=== PATIENT | male | born 1975 | race Caucasian/White ===

== ENCOUNTER 2021-01-05 17:49 | Observation (INO) | payer SELFPAY ==
[~2021-01-05] VITALS: Ht 175.3 cm; Wt 68.0 kg
--- NOTE | 2021-01-05 17:51 | NUR ---
PATIENT TO ROOM VIA WHEELCHAIR AND PHYSICIAN NOTIFIED OF PATIENT STATUS
[2021-01-05 18:21] LABS: HEMATOCRIT 49.2 % (39.0-50.0); HEMOGLOBIN 17.1 g/dl (14.0-18.0); IMMATURE GRANULOCYTES 0.4 % (0.0-5.0); MEAN CELL VOLUME 86.3 fL CALC (80.0-100.0); MEAN CORPUSCULAR HGB CONC 34.8 g/dL CAL (32.0-36.0); NEUT# 14.64 thou/uL (1.82-7.42); RED BLOOD COUNT 5.7 mill/uL (4.70-6.10); RED CELL DISTRI WIDTH 12.7 % (11.5-15.5)
[2021-01-05 18:34] LABS: ACT PARTIAL THROMBO TIME 26.3 SECONDS (20.0-32.5); INTERNATIONAL NORMALIZED RATIO 1.1 RATIO (0.7-1.3); PROTHROMBIN TIME 11.3 SECONDS (9.0-12.5)
[2021-01-05 18:37] LABS: ALBUMIN 5.1 g/dL (3.2-5.0); ALKALINE PHOSPHATASE 61 u/l (38-126); AMYLASE 66 u/l (30-110); ANION GAP 15 (6-22 (CALC)); BILIRUBIN, TOTAL 1.1 mg/dL (0.0-1.4); BUN 19 mg/dL (9-20); BUN/CREATININE RATIO 24 (12-20 (CALC)); CARBON DIOXIDE 28 mmol/l (22-30); CHLORIDE 96 mmol/l (95-108); CREATININE 0.8 mg/dL (0.7-1.3); ETHYL ALCOHOL 0 mg/dl (0-30); GFR > 60 ML/MIN (>=60 (CALC)); GFR FOR AFR.AMER. > 60 ML/MIN (>=60 (CALC)); LIPASE 39 u/l (23-300); MAGNESIUM 1.8 mg/dL (1.6-2.3); POTASSIUM 3.4 mmol/l (3.5-5.1); SGOT/AST 40 u/l (17-59); SODIUM 135 mmol/l (137-146); TOTAL PROTEIN 8.7 g/dL (6.3-8.2)
--- NOTE | 2021-01-05 19:00 | NUR ---
ASSUMED CARE OF PT
--- NOTE | 2021-01-05 20:00 | NUR ---
Reassessment of patient completed. No distress noted.
--- NOTE | 2021-01-05 21:08 | NUR ---
PT ENCOURAGED TO PROVIDA A URINE SAMPLE
[2021-01-05 21:18] LABS: URINE BILIRUBIN - DIPSTICK NEGATIVE (NEGATIVE); URINE BLOOD DIPSTICK NEGATIVE (NEGATIVE); URINE COLOR YELLOW; URINE GLUCOSE - DIPSTICK NEGATIVE (NEGATIVE); URINE KETONE TRACE mg/dL (NEGATIVE); URINE LEUK ESTERASE NEGATIVE (NEGATIVE); URINE PROTEIN - DIPSTICK 30 mg/dL (NEG-TRACE)
[2021-01-05 21:19] LABS: URINE NITRITE - DIPSTICK NEGATIVE (Negative)
--- NOTE | 2021-01-05 22:01 | NUR ---
Reassessment of patient completed. No distress noted.
--- NOTE | 2021-01-05 23:36 | NUR ---
REPORT GIVEN TO AllocadiaLORNA BLANKENSHIP
--- NOTE | 2021-01-06 00:02 | NUR ---
PT TRANSPORTED VIA WHEELCHAIR
--- NOTE | 2021-01-06 00:16 | NUR ---
PT ALERT AND ORIENTED. PT HAS BEEN THROWING UP LAST THREE DAYS FROM MILK. ABD TENDER TO TOUCH. LUNGS SOUNDS CLEAR. HEART HATE NORMAL. NO EDMEA. PT NPO. HE HAS ICE CHIPS ON BED SIDE TABLE. TOLERATING IT OKAY. PT SAYS PAIN IS AT 6 AT THIS MOMENT. WILL CALL OXYGEN EQUIPMENT TECHNICIAN CALL LIGHT AND TABLE WITHIN RANGE.
[2021-01-06 00:20] VITALS: BP 135/87
[2021-01-06 04:00] VITALS: BP 112/64
--- NOTE | 2021-01-06 04:00 | NUR ---
PT IN BED RESTING. ASKED FOR ICE CHIPS AND ABLE TO TOLERATE. PAIN IS NOT SEVERE BEFORE. CALL LIGHT AND TABLE WITHIN REACH
[2021-01-06 05:39] LABS: ANION GAP 10 (6-22 (CALC)); BUN 15 mg/dL (9-20); BUN/CREATININE RATIO 20 (12-20 (CALC)); CARBON DIOXIDE 30 mmol/l (22-30); CHLORIDE 100 mmol/l (95-108); CREATININE 0.7 mg/dL (0.7-1.3); GFR > 60 ML/MIN (>=60 (CALC)); GFR FOR AFR.AMER. > 60 ML/MIN (>=60 (CALC)); POTASSIUM 3.8 mmol/l (3.5-5.1); SODIUM 136 mmol/l (137-146)
[2021-01-06 05:43] LABS: IMMATURE GRANULOCYTES 0.4 % (0.0-5.0); MEAN CELL VOLUME 89.7 fL CALC (80.0-100.0); MEAN CORPUSCULAR HGB 29.9 pG CALC (26.0-32.0); MEAN CORPUSCULAR HGB CONC 33.3 g/dL CAL (32.0-36.0); NEUT# 9.48 thou/uL (1.82-7.42); RED BLOOD COUNT 4.68 mill/uL (4.70-6.10)
[2021-01-06 08:00] VITALS: BP 114/63
--- NOTE | 2021-01-06 09:00 | NUR ---
PT ATTEMPTED TO EAT FULL LIQUID BREAKFAST, FOUND THAT HE WAS STILL GETTING NAUSEATED. NO ACTIVE VOMITING NOTED, SLIGHT EPIGASTRIC DISCOMFORT.
[2021-01-06 11:19] VITALS: BP 111/69
[2021-01-06] MEDS ORDERED: ZOFRAN4 MG/TAB PO (11:21)
[2021-01-06] MEDS ORDERED: PRILOSEC20 MG/CAP PO (11:22)
--- NOTE | 2021-01-06 12:56 | NUR ---
PT STATES THAT HE WAS ABLE TO EAT SOME OF HIS LUNCH PRIOR TO GETTING NAUSEATED. PT STATES THAT HE FEELS WELL ENOUGH TO GO HOME. PT VERBALIZES UNDERSTANDING OF DC INSTRUCTIONS, TAKEN BY WHEELCHAIR TO LOBBY WHERE HE IS EXPECTING GIRLFRIEND TO PICK HIM UP. PT LEAVES IN STABLE CONDITION.
== END 2021-01-06 13:00 | disposition home or self-care (01) | DRG 392 ==
LOC: ED 17:49 → ED-I 21:50 → ED 22:02 → MS2 22:03
PROVIDERS: ADMIT Internal Medicine; ATTEND Internal Medicine
DX: K52.9 Noninfective gastroenteritis and colitis, unspecified (principal); Z87.11 Personal history of peptic ulcer disease
CPT/HCPCS: G0378; Q9967; S0164

== ENCOUNTER 2021-02-18 23:51 | Emergency (ER) | payer SELFPAY ==
[~2021-02-18] VITALS: Ht 175.3 cm; Wt 70.0 kg
[~2021-02-18 23:51] MED LIST: PRILOSEC20 MG/CAP PO; ZOFRAN4 MG/TAB PO
[2021-02-19 00:34] LABS: HEMATOCRIT 47.4 % (39.0-50.0); IMMATURE GRANULOCYTES 0.3 % (0.0-5.0); MEAN CORPUSCULAR HGB 30.1 pG CALC (26.0-32.0); MEAN CORPUSCULAR HGB CONC 34.6 g/dL CAL (32.0-36.0); NEUT# 14.78 thou/uL (1.82-7.42); RED BLOOD COUNT 5.45 mill/uL (4.70-6.10); RED CELL DISTRI WIDTH 12.7 % (11.5-15.5)
[2021-02-19 00:38] LABS: HEMOGLOBIN 16.4 g/dl (14.0-18.0)
[2021-02-19 01:06] LABS: ALBUMIN 4.7 g/dL (3.2-5.0); ALKALINE PHOSPHATASE 61 u/l (38-126); AMYLASE 53 u/l (30-110); ANION GAP 15 (6-22 (CALC)); BILIRUBIN, TOTAL 0.8 mg/dL (0.0-1.4); BUN 10 mg/dL (9-20); BUN/CREATININE RATIO 16 (12-20 (CALC)); CARBON DIOXIDE 25 mmol/l (22-30); CHLORIDE 103 mmol/l (95-108); CREATININE 0.7 mg/dL (0.7-1.3); GFR > 60 ML/MIN (>=60 (CALC)); GFR FOR AFR.AMER. > 60 ML/MIN (>=60 (CALC)); LIPASE 29 u/l (23-300); POTASSIUM 3.5 mmol/l (3.5-5.1); SGOT/AST 24 u/l (17-59); SODIUM 140 mmol/l (137-146); TOTAL PROTEIN 8.1 g/dL (6.3-8.2)
[2021-02-19 07:59] LABS: URINE BILIRUBIN - DIPSTICK NEGATIVE (NEGATIVE); URINE BLOOD DIPSTICK NEGATIVE (NEGATIVE); URINE COLOR YELLOW; URINE GLUCOSE - DIPSTICK NEGATIVE (NEGATIVE); URINE KETONE 15 mg/dL (NEGATIVE); URINE LEUK ESTERASE NEGATIVE (NEGATIVE); URINE PROTEIN - DIPSTICK TRACE mg/dL (NEG-TRACE); URINE SPECIFIC GRAVITY 1.025; URINE UROBILINOGEN - DIPSTICK 0.2 E.U./dL (0.2)
[2021-02-19 08:05] LABS: URINE NITRITE - DIPSTICK NEGATIVE (Negative)
[2021-02-19] MEDS ORDERED: LOMOTIL2.5 MG PO (10:37)
[2021-02-19] MEDS ORDERED: EQ OMEPRAZOLE20 MG PO (10:37)
[2021-02-19] MEDS ORDERED: ONDANSETRON4 MG PO (10:37)
[2021-02-19] MEDS ORDERED: ULTRAM50 M1 PO (10:37)
[2021-02-19 10:53] VITALS: BP 136/82
[2021-02-20] MEDS ORDERED: PHENERGAN25 MG/TAB PO (22:39)
== END 2021-02-19 11:08 | disposition home or self-care (01) | DRG 392 ==
LOC: ED 23:51
PROVIDERS: Emergency Medicine
DX: K52.9 Noninfective gastroenteritis and colitis, unspecified (principal); D72.829 Elevated white blood cell count, unspecified; Z87.11 Personal history of peptic ulcer disease; Z20.822 Contact with and (suspected) exposure to COVID-19
CPT/HCPCS: Q9967; S0164

== ENCOUNTER 2021-02-20 18:46 | Emergency (ER) | payer SELFPAY ==
[~2021-02-20] VITALS: Ht 175.3 cm; Wt 72.7 kg
[~2021-02-20 18:46] MED LIST changes: +EQ OMEPRAZOLE20 MG PO; +LOMOTIL2.5 MG PO; +ONDANSETRON4 MG PO; +ULTRAM50 M1 PO
[2021-02-20 19:47] LABS: HEMATOCRIT 43.3 % (39.0-50.0); HEMOGLOBIN 14.9 g/dl (14.0-18.0); IMMATURE GRANULOCYTES 0.4 % (0.0-5.0); MEAN CELL VOLUME 87.1 fL CALC (80.0-100.0); MEAN CORPUSCULAR HGB CONC 34.4 g/dL CAL (32.0-36.0); NEUT# 12.92 thou/uL (1.82-7.42); RED BLOOD COUNT 4.97 mill/uL (4.70-6.10); RED CELL DISTRI WIDTH 12.8 % (11.5-15.5)
[2021-02-20 20:05] LABS: ALBUMIN 4.7 g/dL (3.2-5.0); ALKALINE PHOSPHATASE 52 u/l (38-126); AMYLASE 62 u/l (30-110); ANION GAP 14 (6-22 (CALC)); BILIRUBIN, TOTAL 0.9 mg/dL (0.0-1.4); BUN 10 mg/dL (9-20); BUN/CREATININE RATIO 13 (12-20 (CALC)); CARBON DIOXIDE 28 mmol/l (22-30); CHLORIDE 101 mmol/l (95-108); CREATININE 0.7 mg/dL (0.7-1.3); ETHYL ALCOHOL 0 mg/dl (0-30); GFR > 60 ML/MIN (>=60 (CALC)); GFR FOR AFR.AMER. > 60 ML/MIN (>=60 (CALC)); LIPASE 41 u/l (23-300); SGOT/AST 38 u/l (17-59); SODIUM 140 mmol/l (137-146)
[2021-02-20 22:05] LABS: URINE BILIRUBIN - DIPSTICK NEGATIVE (NEGATIVE); URINE BLOOD DIPSTICK NEGATIVE (NEGATIVE); URINE COLOR YELLOW; URINE GLUCOSE - DIPSTICK NEGATIVE (NEGATIVE); URINE KETONE 40 mg/dL (NEGATIVE); URINE LEUK ESTERASE NEGATIVE (NEGATIVE); URINE PROTEIN - DIPSTICK 30 mg/dL (NEG-TRACE); URINE SPECIFIC GRAVITY >=1.030; URINE UROBILINOGEN - DIPSTICK 0.2 E.U./dL (0.2)
[2021-02-20 22:16] LABS: URINE NITRITE - DIPSTICK NEGATIVE (Negative)
[2021-02-20 22:17] LABS: URINE RBC 0-2 RBC/hpf (0-5); URINE WBC 0-2 WBC/hpf (0-5)
[2021-02-20] MEDS ORDERED: PHENERGAN25 MG/TAB PO (22:39)
[2021-02-20 23:11] VITALS: BP 126/82
== END 2021-02-20 23:11 | disposition home or self-care (01) | DRG 392 ==
LOC: ED 18:46
DX: R11.2 Nausea with vomiting, unspecified (principal); R10.84 Generalized abdominal pain; Z87.11 Personal history of peptic ulcer disease
CPT/HCPCS: S0164

== ENCOUNTER 2024-04-01 19:25 | Emergency (ER) | payer SELFPAY ==
[2024-04-01] VITALS (8 sets, daily range): BP systolic 149–181; BP diastolic 83–119
[~2024-04-01] VITALS: Ht 175.3 cm; Wt 77.0 kg
[~2024-04-01 19:25] MED LIST changes: +PHENERGAN25 MG/TAB PO
[2024-04-01] MEDS ORDERED: SODIUM CHLORIDE 0.9% 1,000 ML IV STA (20:02)
[2024-04-01] MEDS ORDERED: KETOROLAC TROMETHAMINE 30 MG/ML SDV IV ONE ×2 (20:05→23:50)
[2024-04-01] MEDS ORDERED: LOPERAMIDE HCL 2 MG CAP PO ONE (20:05)
[2024-04-01] MEDS ORDERED: PROMETHAZINE HCL 25 MG/ML AMP IV ONE (20:05)
[2024-04-01 20:39] LABS: BASO% 0.2 % (0-3); IMMATURE GRANULOCYTES 0.2 % (0.0-5.0); LYMPH% 8.4 % (15-41); MEAN CELL VOLUME 88.9 fL CALC (80.0-100.0); MEAN CORPUSCULAR HGB 30.2 pG CALC (26.0-32.0); MONO% 4.6 % (2-13); NEUT# 14.11 thou/uL (1.82-7.42); NEUT% 86.6 % (42-76); RED BLOOD COUNT 5.59 mill/uL (4.70-6.10); RED CELL DISTRI WIDTH 12.9 % (11.5-15.5)
[2024-04-01 20:40] LABS: HEMATOCRIT 49.7 % (39.0-50.0); HEMOGLOBIN 16.9 g/dl (14.0-18.0)
[2024-04-01 20:48] LABS: ALBUMIN 4.7 g/dL (3.2-5.0); BILIRUBIN, TOTAL 1.1 mg/dL (0.2-1.3); CREATININE 0.8 mg/dL (0.7-1.3); MAGNESIUM 1.7 mg/dL (1.6-2.3); POTASSIUM 4.1 mmol/l (3.5-5.1); TOTAL PROTEIN 7.9 g/dL (6.3-8.2)
[2024-04-01] MEDS ORDERED: LACTATED RINGER'S 1,000 ML IV ONE (21:15)
[2024-04-01 22:35] LABS: URINE BLOOD DIPSTICK Small (NEGATIVE); URINE GLUCOSE - DIPSTICK Negative (NEGATIVE); URINE KETONE >=160 mg/dL (NEGATIVE); URINE LEUK ESTERASE Negative (NEGATIVE); URINE NITRITE - DIPSTICK Negative (Negative); URINE PH 5.5 (4.5-8.0); URINE PROTEIN - DIPSTICK 100 mg/dL (NEG-TRACE); URINE SPECIFIC GRAVITY >=1.030; URINE UROBILINOGEN - DIPSTICK 0.2 E.U./dL (0.2)
[2024-04-01 22:36] LABS: URINE AMORPH SEDIMENT MANY hpf (NONE-FER); URINE COLOR Yellow
[2024-04-01] MEDS ORDERED: DICYCLOMINE HCL 10 MG/CAP PO ONE (23:50)
[2024-04-01] MEDS ORDERED: PROCHLORPERAZINE EDISYLATE 10 MG/2 ML SDV IV ONE (23:55)
[2024-04-02] VITALS: BP 160/80
[2024-04-02] MEDS ORDERED: ANTI-DIARRHE2 M1 PO (00:56)
[2024-04-02] MEDS ORDERED: PROMETHAZINE HY25 M1 PO (00:56)
[2024-04-02 01:18] VITALS: BP 160/80
== END 2024-04-02 01:18 | disposition home or self-care (01) | DRG 392 ==
LOC: ED 19:25
PROVIDERS: Family Medicine
DX: K52.9 Noninfective gastroenteritis and colitis, unspecified (principal); Z87.11 Personal history of peptic ulcer disease; Z20.822 Contact with and (suspected) exposure to COVID-19

== ENCOUNTER 2024-04-03 10:55 | Observation (INO) | payer SELFPAY ==
[~2024-04-03] VITALS: Ht 175.3 cm; Wt 78.8 kg
[2024-04-03] VITALS (17 sets, daily range): BP systolic 130–180; BP diastolic 75–101
[~2024-04-03 10:55] MED LIST changes: +ANTI-DIARRHE2 M1 PO; +PROMETHAZINE HY25 M1 PO
--- NOTE | 2024-04-03 11:19 | NUR ---
PATIENT TO ROOM 12 VIA WHEELCHAIR
[2024-04-03] MEDS ORDERED: ONDANSETRON HCl 4 MG/2 ML SDV IV ONE (11:50)
[2024-04-03] MEDS ORDERED: HALOPERIDOL LACTATE 5 MG/ML SDV IV ONE (11:55)
[2024-04-03] MEDS ORDERED: SODIUM CHLORIDE 0.9% 1,000 ML IV ONE ×2 (11:55)
[2024-04-03 12:25] LABS: BASO% 0.2 % (0-3); EOS% 0.1 % (0-8); HEMATOCRIT 44.2 % (39.0-50.0); HEMOGLOBIN 15.3 g/dl (14.0-18.0); IMMATURE GRANULOCYTES 0.1 % (0.0-5.0); LYMPH% 16.8 % (15-41); MEAN CELL VOLUME 88.9 fL CALC (80.0-100.0); MEAN CORPUSCULAR HGB 30.8 pG CALC (26.0-32.0); MEAN CORPUSCULAR HGB CONC 34.6 g/dL CAL (32.0-36.0); MONO% 8.6 % (2-13); NEUT# 10.08 thou/uL (1.82-7.42); NEUT% 74.2 % (42-76); RED BLOOD COUNT 4.97 mill/uL (4.70-6.10); RED CELL DISTRI WIDTH 12.9 % (11.5-15.5)
[2024-04-03 12:39] LABS: ALBUMIN 4.1 g/dL (3.2-5.0); BILIRUBIN, TOTAL 1.2 mg/dL (0.2-1.3); CREATININE 0.6 mg/dL (0.7-1.3); POTASSIUM 3.3 mmol/l (3.5-5.1); TOTAL PROTEIN 7.4 g/dL (6.3-8.2)
[2024-04-03] MEDS ORDERED: MAGNESIUM HYDROXIDE 30 ML UDC PO PRN (14:10)
[2024-04-03] MEDS ORDERED: ACETAMINOPHEN 325 MG/TAB PO PRN (14:10)
[2024-04-03] MEDS ORDERED: ONDANSETRON HCl 4 MG/2 ML SDV IV PRN (14:15)
[2024-04-03] MEDS ORDERED: Pantoprazole Sodium 40 MG VIAL (Protonix) IV SCH (14:15)
[2024-04-03] MEDS ORDERED: KETOROLAC TROMETHAMINE 30 MG/ML SDV IV PRN (14:15)
[2024-04-03] MEDS ORDERED: MORPHINE SULFATE 4 MG/ML VIAL IV PRN (14:15)
[2024-04-03] MEDS ORDERED: METOCLOPRAMIDE HCL 10 MG/2 ML SDV IV PRN (14:15)
[2024-04-03] MEDS ORDERED: LACTATED RINGER'S 1,000 ML IV PRN (14:20)
--- NOTE | 2024-04-03 14:36 | NUR ---
male pt received to [facility] via wc accompanied by Jones Jensen RN and s/o; ambulatory to bed; no apparent distress noted; admission assessment completed; pt alert and oriented; c/c of persistent n/v/diarrhea x3 days; admits to abd pain rating 7/10; will medicate; resp even and ulabored; lungs clear; skin color wnl; ra; hr reg; pulses present; no edema noted; abd soft/tender with bs present; no bm noted per senior writer; admits to voiding without pain or burning; urinal placed at bedside; #20 to lac patent with iv bolus infusing without complication; no redness or edema noted at site; plan of care/ meds/ diet explained; call light within reach; will continue to monitor
--- NOTE | 2024-04-03 14:41 | NUR ---
PATIENT TRANSFERRED TO ROOM 261 VIA WHEELCHAIR.
[2024-04-03] MEDS ORDERED: AZITHROMYCIN 500 MG in SODIUM CHLORIDE 0.9% 250 ML IV SCH (15:30)
[2024-04-03] MEDS ORDERED: hydrALAZINE HCL 20 MG/ML VIAL(1 ML) IV PRN (15:55)
--- NOTE | 2024-04-03 16:12 | NUR ---
pt resting in bed on left side with eyes closed; iv intact; no apparent distress noted; call light within reach; will continue to monitor
--- NOTE | 2024-04-03 17:27 | NUR ---
resting in bed; s/o at bedside; pt with complaints of nausea, medicated; iv intact and patent; call light within reach
--- NOTE | 2024-04-03 19:44 | NUR ---
REPORT RECIEVED FROM [facility] NURSE. ELIAZAR RUDOLPH. PT RESTING IN BED WATCHING TELEVISION. PT IS A&O X3. PT STATED HE ATTEMPTED TO EAT SOUP, BUT IT MADE HIM NAUSEOUS. PT DENIES ANY VOMITTING SINCE ADMISSION ; EMESIS BAG PLACED AT BEDSIDE A PRECAUTION. WILL FOLLOW UP WITH EMAR FOR NAUSEA. NO FURHTER COMPLAINTS VOICED FROM THE PT AT THIS TIME. RADIAL AND PEDAL PULSES ARE STRONG. BOWEL SOUNDS ARE NORMOACTIVE. PT STATES THAT HE HAD A LOOSE BM THIS MORNING. EDUCATED PT ON MEDICAITON SCHEDULE AND POC. CALL LIGHT IN REACH, AND SAFETY PRECAUTIONS IN PLACE.
[2024-04-03] MEDS ORDERED: ENOXAPARIN SODIUM 40 MG/0.4 ML SYR SC SCH (21:00)
[2024-04-03] MEDS ORDERED: METOPROLOL TARTRATE 25 MG/TAB PO SCH (21:52)
[2024-04-03] MEDS ORDERED: Zaleplon 5 MG/CAP PO PRN (22:00)
--- NOTE | 2024-04-04 00:30 | NUR ---
PT RESTING IN BED. PT DENIES ANY PAIN OR NAUSEA AT THIS TIME. NO FURTHER COMPLAINTS VOICED FROM PT. CALL LIGHT IN REACH, AND SAFETY PRECAUTIONS IN PLACE.
[2024-04-04 04:30] VITALS: BP 125/80
--- NOTE | 2024-04-04 04:46 | NUR ---
PT RESTING IN BED WITH EYES CLOSED. THIS PROJECT DEVELOPER OBTAINED VS AT THIS TIME. PT DOES COMPLAIN OF NAUSEA AT THIS TIME, WILL FOLLOW UP PER EMAR. NO FURTHER COMPLAINTS VOICED FROM THE PT. CALL LIGHT IN REACH, AND SAFETY PRECAUTIONS IN PLACE.
[2024-04-04 05:16] LABS: BASO% 0.4 % (0-3); EOS% 0.4 % (0-8); HEMATOCRIT 42.4 % (39.0-50.0); HEMOGLOBIN 14.9 g/dl (14.0-18.0); IMMATURE GRANULOCYTES 0.2 % (0.0-5.0); LYMPH% 19.8 % (15-41); MEAN CELL VOLUME 88.7 fL CALC (80.0-100.0); MEAN CORPUSCULAR HGB 31.2 pG CALC (26.0-32.0); MEAN CORPUSCULAR HGB CONC 35.1 g/dL CAL (32.0-36.0); MONO% 9.6 % (2-13); NEUT# 8.9 thou/uL (1.82-7.42); NEUT% 69.6 % (42-76); RED BLOOD COUNT 4.78 mill/uL (4.70-6.10); RED CELL DISTRI WIDTH 12.7 % (11.5-15.5)
[2024-04-04 05:28] LABS: ALBUMIN 3.6 g/dL (3.2-5.0); BILIRUBIN, TOTAL 1.3 mg/dL (0.2-1.3); CREATININE 0.7 mg/dL (0.7-1.3); MAGNESIUM 1.8 mg/dL (1.6-2.3); POTASSIUM 3.4 mmol/l (3.5-5.1); TOTAL PROTEIN 6.1 g/dL (6.3-8.2)
[2024-04-04 07:19] VITALS: BP 156/99
--- NOTE | 2024-04-04 07:43 | NUR ---
PATEINT A/O X3; ROOM AIR; BREATHING UNLABORED AND EVEN; STATES HE HAVE SOME NAUSEA NO VOMITING AT THIS TIME; IV SITE CLEAN AND INTACT RUNNING WITH NS @125; NO TELE ; PATEINT LAYING SEMI CARRILLO IN BED WATCHING TV; DENIED ANY PAIN; MEDICATION REVIWED; CALL LIGHT WITHIN REACH, VERBALIZED UNDERSTANDING ON HOW TO USE, PERSONAL ITEMS WITHIN REACH, BED IN LOWEST POSTION
--- NOTE | 2024-04-04 08:50 | NUR ---
PATEINT A/O X3; ROOM AIR; BREATHING UNLABORED AND EVEN; DENIED ANY PAIN; STATED HE FELT NASUEA, MEDICATED; DENIED ANY PAIN; DENIED ANY VOMITNIG OR DIRRHEA, IV SITE CLEAN AND INTACT RUNNING WITH LR @125; NO TELE; MEDICATION REVIWED; GINGERALE WAS PROVIDER TO HELP WITH NAUSEA; PATIENT LAYING ON LEFT SIDE; CALL ILGHT WITHIN REACH, VEBRALIZED UNDERSTANDING ON HOW TO USE, PERSONAL ITEMS WITHIN REACH, BED IN LWOEST POSTION
[2024-04-04] MEDS ORDERED: DEXAMETHASONE SODIUM PHOSPHATE 4 MG/VIAL SDV IV SCH (09:00)
--- NOTE | 2024-04-04 12:15 | NUR ---
PATIENT A/O X3; ROOM AIR; BREATHING UNLABORED AND EVEN; DENIED ANY DIRREHA, SOME NASUEA AND PAIN; MEDICATED PATIENT FOR BOTH; IV SITE CLEAN AND INTACT RUNNING WITH LR @125; NO TELE ;FAMILY IN ROOM WITH PATIENT; MEDICATION REVIWED; CALL LIGHT WITHIN REACH,VERBALIZED UNDERSTANDING ON HOW TO USE, PERSONAL ITEMS WITHIN REACH, BED IN LOWEST POSTION
[2024-04-04] MEDS ORDERED: POTASSIUM CHLORIDE 20MEQ 100 ML IV SCH (14:00)
--- NOTE | 2024-04-04 16:17 | NUR ---
PATIENT A/O X3; ROOM AIR; BREATHING UNLABORED AND EVEN; DENIED ANY N/D/V AT THIS TIME; DENIED NEEDING ANYTHING; SOME DISCOMFRT IN ABD AREA; REPOSTIONED; IV SITE CLEAN AND INTACT RUNNING WITH ZITHROMAX; FAMILY IN ROOM WITH SUZE;MEDICATION REVIWED; PRVIDED PATIENT WITH FLORA NGUYEN; CALL BRADFORD PRUETT,VERBALIZED UNDERSTANDING ON HOW TO USE, PERSONAL ITEMS WITHIN REACH, BED IN LOWEST POSTION
[2024-04-04 18:29] VITALS: BP 137/92
[2024-04-04 18:30] VITALS: BP 137/92
--- NOTE | 2024-04-04 20:00 | NUR ---
PT RECIEVED FROM [facility] NURSE. JUANA BLANKENSHIP. PT RECIEVED SHOWER AT THIS TIME. PT IS A&O X3, AND ABLE TO MAKE NEEDS KNOWN. PT DOES COMPLAIN OF PAIN IN ABDOMEN, WILL FOLLOW UP WITH EMAR. 300 ML OF CLEAR YELLOW URINE VOIDED AT THIS TIME. ABDOMEN IS SLIGHTLY DISTENDED, BUT SOFT. PT STATES THAT HE HAS BEEN PASSING GAS, BUT HAS NOT HAD A BOWEL MOVEMENT. BOWEL SOUNDS ARE ACTIVE X4 QUADRANTS. PT EDUCATED ON MEDICATION SCHEDULE AND POC. CALL LIGHT IN REACH, AND SAFETY PRECAUTIONS IN PLACE.
--- NOTE | 2024-04-05 00:20 | NUR ---
PT RESTING IN BED WATCHING TELEVISION AT THIS TIME. PT DENIES ANY PAIN OR NAUSEA AT THIS TIME. 475 CC OF CLEAR YELLOW URINE VOIDED AT THIS TIME. NO S&S OF DISTRESS NOTED AT THIS TIME. CALL LIGHT IN REACH, AND SAFETY PRECAUTIONS IN PLACE.
[2024-04-05 04:00] VITALS: BP 137/82
[2024-04-05 04:09] VITALS: BP 137/82
--- NOTE | 2024-04-05 04:17 | NUR ---
PT RESTING IN BED WATCHING TELEVISION. KST OPERATOR OBTAINING VITALS AT THIS TIME. 500 CC OF CLEAR YELLOW URINE EMPITIED FROM URINAL. PT DOES COMPLAIN OF PAIN, WILL FOLLOW UP WITH EMAR. PT DENIES NAUSEA AND VOMITTING. NO FURHTER COMPLAINTS VOICED FROM THE PT. CALL LIGHT IN REACH, AND SAFETY PRECAUTIONS IN PLACE.
[2024-04-05 05:18] LABS: BASO% 0.6 % (0-3); EOS% 1.2 % (0-8); HEMATOCRIT 41.5 % (39.0-50.0); HEMOGLOBIN 14.8 g/dl (14.0-18.0); IMMATURE GRANULOCYTES 0.2 % (0.0-5.0); MEAN CELL VOLUME 86.8 fL CALC (80.0-100.0); MEAN CORPUSCULAR HGB CONC 35.7 g/dL CAL (32.0-36.0); NEUT# 4.81 thou/uL (1.82-7.42); RED BLOOD COUNT 4.78 mill/uL (4.70-6.10); RED CELL DISTRI WIDTH 12.3 % (11.5-15.5)
[2024-04-05 05:38] LABS: ALBUMIN 3.5 g/dL (3.2-5.0); BILIRUBIN, TOTAL 1.3 mg/dL (0.2-1.3); CREATININE 0.7 mg/dL (0.7-1.3); MAGNESIUM 1.7 mg/dL (1.6-2.3); POTASSIUM 3.4 mmol/l (3.5-5.1)
[2024-04-05 06:28] VITALS: BP 139/89
[2024-04-05] MEDS ORDERED: AZITHROMYCIN500 MG PO (09:22)
[2024-04-05] MEDS ORDERED: ONDANSETRON4 MG PO (09:23)
[2024-04-05] MEDS ORDERED: PROTONIX40 M2 PO (09:23)
--- NOTE | 2024-04-05 10:29 | NUR ---
PATIENT RESTING IN BED, BED LOCKED AND LOW, CALL LIGHT WITHIN REACH, NO APPARENT DISTRESS REPORTED OR OBSERVED. PLAN OF CARE REVIEWED WITH PATIENT, QUESTIONS ENCOURAGED AND ANSWERED, NO FURTHER QUESTIONS AT THIS TIME. PATIENT ENCOURAGED TO REACH OUT TO STAFF IF ANY FURTHER HELP IS NEEDED. WILL CONTINUE TO MONITOR.
--- NOTE | 2024-04-05 14:19 | NUR ---
Discharge instructions given. Patient verbalizes understanding of same. Discharged in stable condition via Ambulatory to Home with family. All belongings sent with pt. IV REMOVED, CATHETER INTACT, SITE WNL. PT states ride will be here at approximately 1700 to pick him up.
[2024-04-05] MEDS ORDERED: HYDROcodone 5 MG/Acetaminophen 325 MG/COMBO PO ONE (16:05)
[2024-04-05] MEDS ORDERED: ONDANSETRON 4 MG/TAB ODT PO ONE (16:05)
== END 2024-04-05 17:45 | disposition home or self-care (01) | DRG 373 ==
LOC: ED 10:55 → ED-I 13:38 → ED 13:46 → MS2 13:47
PROVIDERS: Family Medicine; ADMIT Student in an Organized Health Care Education/Training Program; ATTEND Student in an Organized Health Care Education/Training Program
DX: A04.4 Other intestinal Escherichia coli infections (principal); E87.6 Hypokalemia; E78.5 Hyperlipidemia, unspecified; Z87.11 Personal history of peptic ulcer disease; Z20.822 Contact with and (suspected) exposure to COVID-19
CPT/HCPCS: G0378; J1650; J2470; Q9967